=== PATIENT | male | born 1965 | race Caucasian/White ===

== ENCOUNTER 2018-08-13 20:14 | Emergency (ER) | payer OTHER ==
[~2018-08-13] VITALS: Ht 182.9 cm; Wt 92.1 kg
[2018-08-13 21:52] LABS: ABSOLUTE NEUTROPHILS 9.2 thou/uL (1.4-8.2); BASOPHILS 0.6 % (0.0-2.0); EOSINOPHILS 1.3 % (0.0-3.0); HEMATOCRIT 46.4 % (42.0-52.0); HEMOGLOBIN 15.5 gm/dL (14.0-18.0); LYMPHOCYTES 10.9 % (24.0-44.0); MCH 29.6 pg (26.0-34.0); MCHC 33.4 g/dL (28.0-37.0); MCV 88.6 fL (80.0-100.0); MONOCYTES 5.5 % (1.0-8.0); PLATELET COUNT 179 thou/uL (150-400); POLYS 81.7 % (36.0-66.0); RBC 5.24 mil/uL (4.50-6.00); RDW 15.1 % (10.5-14.5); WBC 11.2 thou/uL (4.0-11.0)
[2018-08-13 22:06] LABS: CALCIUM 9.1 mg/dL (8.5-10.1); CREATININE 1.4 mg/dL (0.7-1.3); POTASSIUM 3.9 mmol/L (3.5-5.1)
[2018-08-13 22:07] LABS: ALBUMIN 3.3 g/dL (3.4-5.0); DIRECT BILIRUBIN 0.1 mg/dL (<0.1-0.3); TOTAL BILIRUBIN 0.2 mg/dL (<0.1-1.0); TOTAL PROTEIN 6.4 g/dL (6.4-8.2)
[2018-08-13 22:11] LABS: URINE BILIRUBIN NEGATIVE (Negative); URINE BLOOD NEGATIVE (Negative); URINE CLARITY CLEAR; URINE COLOR YELLOW; URINE GLUCOSE-RANDOM* NEGATIVE (Negative); URINE KETONES NEGATIVE (Negative); URINE LEUKOCYTES-REFLEX NEGATIVE (Negative); URINE NITRITE-REFLEX NEGATIVE (Negative); URINE PROTEIN (DIPSTICK) NEGATIVE (Negative); URINE SPECIFIC GRAVITY <= 1.005 (1.005-1.035); URINE UROBILINOGEN 0.2 E.U./dl (0.2-1.0)
[2018-08-13] MEDS ORDERED: ASPIR 8181 MG PO (23:09)
[2018-08-13] MEDS ORDERED: SYMBICORT160 MCG/4. INH (23:10)
[2018-08-13] MEDS ORDERED: NEURONTIN 300300 M1 PO (23:11)
[2018-08-13] MEDS ORDERED: VITAMIN D250000 UNIT PO (23:11)
[2018-08-13] MEDS ORDERED: CELEXA20 MG PO (23:13)
[2018-08-13] MEDS ORDERED: BIDEX PO (23:15)
[2018-08-13] MEDS ORDERED: BENGAY GREASELE57 GM (23:16)
[2018-08-13] MEDS ORDERED: BENZTROPINE MES1 MG PO (23:16)
[2018-08-13] MEDS ORDERED: PEPCID20 MG PO (23:16)
[2018-08-13] MEDS ORDERED: LIPITOR10 MG PO (23:16)
[2018-08-13] MEDS ORDERED: BACLOFEN 10MG T10 MG PO (23:17)
[2018-08-13] MEDS ORDERED: NORCO 5-325 TA1 EACH PO (23:19)
[2018-08-13] MEDS ORDERED: VENTOLIN HFA 1818 GM PO (23:19)
[2018-08-13] MEDS ORDERED: TYLENOL325 MG PO (23:20)
[2018-08-13] MEDS ORDERED: IBU600 MG PO (23:20)
[2018-08-13] MEDS ORDERED: LOPERAMIDE 2 MG2 M1 PO (23:21)
[2018-08-13] MEDS ORDERED: MYLANTA (23:21)
[2018-08-13] MEDS ORDERED: ROBITUSSIN100 MG/53 PO (23:22)
[2018-08-13] MEDS ORDERED: SENNA PLUS TAB1 EACH PO (23:22)
[2018-08-13] MEDS ORDERED: ZOFRAN ODT4 MG PO (23:26)
[2018-08-13 23:42] VITALS: BP 112/73
== END 2018-08-13 23:46 | disposition home or self-care (01) ==
LOC: ER 20:14
PROVIDERS: Emergency Medicine
DX: R11.2 Nausea with vomiting, unspecified (principal); R53.81 Other malaise; F31.9 Bipolar disorder, unspecified; G89.29 Other chronic pain; M54.9 Dorsalgia, unspecified; F17.210 Nicotine dependence, cigarettes, uncomplicated